=== PATIENT | male | born 1975 | race Caucasian/White ===

== ENCOUNTER → 2022-09-28 | Outpatient (CLI) | payer BC ==
--- NOTE | 2022-09-28 10:55 | Diagnostic Imaging Report ---
CLINICAL INDICATION: Patient with cervicalgia, right-sided neck pain, and left hand numbness. Patient has lack of mobility. EXAM: X-ray of the cervical spine, multiple views. COMPARISON: None. FINDINGS: There is no acute cervical spine fracture or dislocation. The vertebral body heights and intervertebral disk heights are maintained. There is no prevertebral soft tissue swelling. There is no significant motion of the cervical spine on lateral flexion-extension views. Odontoid views show no significant abnormality. IMPRESSION: Unremarkable x-ray of the cervical spine. Dictated by: Dictated on workstation # [id number]
== END ==
LOC: RAD FS 08:49
PROVIDERS: ATTEND Nurse Practitioner
DX: M54.2 Cervicalgia (principal)
CPT/HCPCS: 72050